=== PATIENT | female | born 1985 | race Two or more races ===

== ENCOUNTER 2020-05-19 11:58 | Inpatient (IN) | payer OTHER ==
[2020-05-19] MEDS ORDERED: Sodium Chloride 0.9% 10 ML Syringe FLUSH PRN (12:10)
[2020-05-19] MEDS ORDERED: Nalbuphine 10 MG/1 ML Vial IVPUSH PRN (12:10)
[2020-05-19] MEDS ORDERED: Oxytocin/Lactated Ringers 10 UNIT/1,000 ML BAG IV SCH ×2 (12:15)
[2020-05-19] MEDS ORDERED: Lactated Ringers 1,000 ML IV SCH (12:15)
[2020-05-19] MEDS ORDERED: Lidocaine 1% 50 ML MDV ONE (15:20)
--- NOTE | 2020-05-19 16:14 | PCM.LDHP ---
L&D History of Present Illness - General Date of Service: 05/19/20 Admit Problem/Dx: Patient Status Order with Admit Dx/Problem 05/19/20 12:10 Patient Status [ADT] Routine Admission Diagnosis/Problem Admission Diagnosis/Problem Source of Information: Patient, Family History Limitations: Reports: Language Barrier - History of Present Illness Introduction:: Patient is a 35 year old O+ GBS - Hungarian speaking female at 37-6 weeks gestational age with an GRISELDA of 06/03/20 by 8 week US who presented to the clinic for signs of labor. She reports that she noted contractions early this morning that have become more frequent. She reported some leaking of fluid that is blood tinged but denies vaginal bleeding. Cervical exam demonstrated 4cm/90%/- 2/posterior/soft, changed from previous examination. Amnisure was negative. She was sent to L&D for early signs of labor. Present Illness Comments:: Patient is a 35 year old O+ GBS - Hungarian speaking female at 37-6 weeks gestational age with an GRISELDA of 06/03/20 by 8 week US who presented to the clinic for signs of labor. She was then sent to L&D for early labor. Patient has received routine care with Dr. Trevino and denies any complications during her ; of Note patient had US on 01/23/20 that demonstrated EFW of 492 (94th percentile). Follow up US on 05/05/20 demonstrated EFW of 2986 g (71st percentile). She received the Tdap vaccine on 03/31/20; Flu vaccine 11/19/19 OBGYN History 04/09/09: of a female infant weighing 6 lbs 6 ounces at 40 weeks gestational age "[place]" 09/26/14: of a male weighing unknown at 40 weeks gestational age "[place]" G4: current labs: Blood type: O+ Antibody screen: Negative Rubella status: immune Hepatitis B surface antigen: negative Hepatitis C: unknown RPR: negative HIV: negative Gonorrhea: Negative Chlamydia: negative Anatomy US: 01/26/20 Normal RUBÉN, placental position, anatomy. EFW of 492 (94th percentile). 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: - Infectious Disease History Infectious Disease History: Reports: Novel Coronavirus Social & Family History - Family History Family Medical History: No Pertinent Family History - Tobacco Use Tobacco Use Status *Q: Never Tobacco User Second Hand Smoke Exposure: No - Caffeine Use Caffeine Use: Reports: None - Recreational Drug Use Recreational Drug Use: No H&P Review of Systems - Review of Systems: Review Of Systems: See Below General: Reports: No Symptoms Pulmonary: Reports: No Symptoms Cardiovascular: Reports: No Symptoms L&D Exam - Exam Exam: See Below - Vital Signs Vital Signs: Last Vital Signs Temp 99.2 F 05/19/20 12:10 Pulse 83 05/19/20 12:10 Resp 14 05/19/20 12:10 BP 150/89 H 05/19/20 12:10 Pulse Ox 97 05/19/20 12:10 Weight: 206 lb 11.2 oz - OB Specific Contraction Intensity: Mild to Moderate Movement: Active Heart Tones: Present - Zuniga Score Zuniga Score Cervix Position: Posterior Zuniga Score Consistency: Soft Zuniga Score Effacement: >80% Zuniga Score Dilation: 3-4 cm Zuniga Score 's Station: +1, +2 Zuniga Score Total: 10 - Exam General: Alert, Oriented Skin: Warm, Dry, Intact Psychiatric: Alert, Normal Affect, Normal Mood - Patient Data Lab Results Last 24 hrs: Laboratory Results - last 24 hr 05/19/20 05/19/20 Range/Units 12:28 12:33 WBC 8.71 (3.98-10.04) K/mm3 RBC 4.76 (3.98-5.22) M/mm3 Hgb 14.1 (11.2-15.7) gm/dl Hct 41.5 (34.1-44.9) % MCV 87.2 (79.4-94.8) fl MCH 29.6 (25.6-32.2) pg MCHC 34.0 (32.2-35.5) g/dl RDW Std Deviation 47.3 H (36.4-46.3) fL Plt Count 235 D (182-369) K/mm3 MPV 11.4 (9.4-12.3) fl Neut % (Auto) 74.0 H (34.0-71.1) % Lymph % (Auto) 19.2 L (19.3-51.7) % [place] % (Auto) 6.2 (4.7-12.5) % Eos % (Auto) 0 L (0.7-5.8) Baso % (Auto) 0.1 (0.1-1.2) % Neut # (Auto) 6.45 H (1.56-6.13) K/mm3 Lymph # (Auto) 1.67 (1.18-3.74) K/mm3 [place] # (Auto) 0.54 H (0.24-0.36) K/mm3 Eos # (Auto) 0.00 L (0.04-0.36) K/mm3 Baso # (Auto) 0.01 (0.01-0.08) K/mm3 SARS-CoV-2 RNA (RASHID) Negative (NEGATIVE) Result Diagrams: 05/19/20 12:33 - Problem List (1) 37 weeks gestation of SNOMED Code(s): 84641351 ICD Code: Z3A.37 - 37 WEEKS GESTATION OF Status: Acute Current Visit: Yes (2) Hungarian speaking patient SNOMED Code(s): 628102718 ICD Code: [id number] - Status: Acute Current Visit: Yes (3) Language barrier SNOMED Code(s): 630206300, 071618552 ICD Code: Z78.9 - OTHER SPECIFIED HEALTH STATUS Status: Acute Current Visit: Yes Problem List Initiated/Reviewed/Updated: Yes Orders Last 24hrs: Active Orders 24 hr Category Date Time Status Patient Status [ADT] Routine ADT 05/19/20 12:10 Active Activity as Tolerated [RC] PFP Care 05/19/20 12:10 Active Communication Order [RC] ASDIRECTED Care 05/19/20 12:10 Active Heart Tones [RC] ASDIRECTED Care 05/19/20 12:10 Active Non Stress Test [RC] PER UNIT ROUTINE Care 05/19/20 12:10 Active Notify Provider [RC] PFP Care 05/19/20 12:10 Active Notify Provider [RC] PRN Care 05/19/20 12:10 Active Peripheral IV Care [RC] . DIRECTED Care 05/19/20 12:10 Active Vital Signs [RC] PER UNIT ROUTINE Care 05/19/20 12:10 Active Regular Diet [DIET] Diet 05/19/20 Lunch Active BLOOD BANK HOLD SPECIMEN [BBK] Stat Lab 05/19/20 12:33 Received HEP C VIRUS AB [REF] Stat Lab 05/19/20 12:33 Received RAPID PLASMA REAGIN,RPR [CHEM] Routine Lab 05/19/20 12:33 Received Lactated Ringers [Ringers, Lactated] 1,000 ml Med 05/19/20 12:15 Active IV ASDIRECTED Nalbuphine [Nubain] Med 05/19/20 12:10 Active 10 mg IVPUSH Q2H PRN Oxytocin/Lactated Ringers [Pitocin in LR 10 Units/1,000 Med 05/19/20 12:15 Active ML] 10 unit in 1,000 ml IV .CONTINUOUS Oxytocin/Lactated Ringers [Pitocin in LR 10 Units/1,000 Med 05/19/20 12:15 Active ML] 10 unit in 1,000 ml IV TITRATE Sodium Chloride 0.9% [Saline Flush] Med 05/19/20 12:10 Active 10 ml FLUSH ASDIRECTED PRN Electronic Heart Tones Ext w TOCO [WOMSER] Oth 05/19/20 12:10 Ordered Routine Electronic Heart Tones Internal [WOMSER] Per Unit Oth 05/19/20 12:10 Ordered Routine Peripheral IV Insertion Adult [OM.PC] Routine Oth 05/19/20 12:10 Ordered Resuscitation Status Routine Resus Stat 05/19/20 12:10 Ordered Medication Orders Oxytocin/Lactated Ringer's (Pitocin In Lr 10 Units/1,000 Ml) 10 unit in 1,000 mls @ 12 mls/hr IV TITRATE REMY; Protocol Oxytocin/Lactated Ringer's (Pitocin In Lr 10 Units/1,000 Ml) 10 unit in 1,000 mls @ 500 mls/hr IV .CONTINUOUS REMY Lactated Ringer's (Ringers, Lactated) 1,000 mls @ 100 mls/hr IV ASDIRECTED REMY Nalbuphine HCl (Nalbuphine 10 Mg/1 Ml Vial) 10 mg IVPUSH Q2H PRN PRN Reason: Pain Sodium Chloride (Sodium Chloride 0.9% 10 Ml Syringe) 10 ml FLUSH ASDIRECTED PRN PRN Reason: Keep Vein Open Assessment/Plan Comment:: Patient is a 35 year old O+ GBS - Hungarian speaking female at 37-6 weeks gestational age with an GRISELDA of 06/03/20 by 8 week who presented to the clinic for signs of labor. She reports that she noted contractions early this morning that have become more frequent. She reported some leaking of fluid that is blood tinged but denies vaginal bleeding. Cervical exam demonstrated 4cm/90%/- 2/posterior/soft, changed from previous examination. Amnisure was negative. She was sent to L&D for early signs of labor. AROM was performed, demonstrating clear fluid. Mom and baby tolerated procedure well. 1. Early signs of labor - AROM with clear fluid done approximately 1245. Augmentation of labor with Pitocin as indicated 2. GBS - 3. O+ with negative antibody screen 4. Rubella immune 5. Continuous monitoring 6. Activity as tolerated 7. Small amounts of regular diet 8. Pain management as patient desires - she does not believe she wants an epidural at this time 9. Plans to breastfeed 10. Anticipate vaginal delivery unless otherwise indicated
--- NOTE | 2020-05-19 16:24 | PCM.DEL ---
L & D Note - General Info Date of Service: 05/19/20 Mother's Due Date: 06/03/20 - Delivery Note Labor: Spontaneous, Augmented by ARM Infant Delivery Method: Spontaneous Vaginal Delivery-Single Infant Delivery Mode: Spontaneous Presentation: Left Occiput Anterior (MARLENI) Nuchal Cord: None Anesthetic: Lidocaine (Xylocaine) 1% Plain Local Anesthetic Volume: Other (10 cc) Amniotic Fluid Description: Clear Laceration: 2nd Degree Suture type: Other (Monocryl) Suture size: 3-0 Placenta: Intact, Spontaneous Cord: 3 Vessels Estimated Blood Loss: 250 Resuscitation Needed: No : Bulb Syringe, Stimulated, Warmed Provider: Rebeca Stevens Score 1 min: 8 Score 5 min: 9 Second Stage Interventions: Reports: Encouragement Given Delivery Comments (Free Text/Narrative):: Stage I: Patient is a 35 year old O+ GBS - Faroese speaking female at 37-6 weeks gestational age with an GRISELDA of 06/03/20 by 8 week US who presented to the clinic for signs of labor. She reports that she noted contractions early this morning that have become more frequent. She reported some leaking of fluid that is blood tinged but denies vaginal bleeding. Cervical exam demonstrated 4cm/90%/-2/posterior/soft, changed from previous examination. She was sent to L&D for early signs of labor. Amnisure was negative. AROM was performed with clear fluid; mom and baby tolerated the procedure well. She quickly progressed to complete and pushing. Stage II: of a live male infant weighing 3370 g (7lbs 7 ounces) with Apgars of 8/9 at 1515 on 05/19/20 in the MARLENI position. The was placed on mother's abdomen and dried and stimulated. The vaginal mucosa was inspected and a midline 2nd degree laceration was noted. The area was numbed with 1% Lidocaine 10 ccs. The laceration was repaired with 3-0 Monocryl. Stage III: Spontaneous delivery of an intact placenta with three vessels occurred at 1521. The vaginal mucosa was once again inspected and demonstrated no other lacerations. Fundus was firm to palpation. EBL 250. Mother and baby stable to recovery. - General Info Date of Service: 05/19/20 - Patient Data Vitals - Most Recent: Last Vital Signs Temp 99.2 F 05/19/20 12:10 Pulse 83 05/19/20 12:10 Resp 14 05/19/20 12:10 BP 150/89 H 05/19/20 12:10 Pulse Ox 97 05/19/20 12:10 Weight - Most Recent: 206 lb 11.2 oz Lab Results Last 24 Hours: Laboratory Results - last 24 hr 05/19/20 05/19/20 Range/Units 12:28 12:33 WBC 8.71 (3.98-10.04) K/mm3 RBC 4.76 (3.98-5.22) M/mm3 Hgb 14.1 (11.2-15.7) gm/dl Hct 41.5 (34.1-44.9) % MCV 87.2 (79.4-94.8) fl MCH 29.6 (25.6-32.2) pg MCHC 34.0 (32.2-35.5) g/dl RDW Std Deviation 47.3 H (36.4-46.3) fL Plt Count 235 D (182-369) K/mm3 MPV 11.4 (9.4-12.3) fl Neut % (Auto) 74.0 H (34.0-71.1) % Lymph % (Auto) 19.2 L (19.3-51.7) % [place] % (Auto) 6.2 (4.7-12.5) % Eos % (Auto) 0 L (0.7-5.8) Baso % (Auto) 0.1 (0.1-1.2) % Neut # (Auto) 6.45 H (1.56-6.13) K/mm3 Lymph # (Auto) 1.67 (1.18-3.74) K/mm3 [place] # (Auto) 0.54 H (0.24-0.36) K/mm3 Eos # (Auto) 0.00 L (0.04-0.36) K/mm3 Baso # (Auto) 0.01 (0.01-0.08) K/mm3 SARS-CoV-2 RNA (RASHID) Negative (NEGATIVE) Med Orders - Current: Current Medications Oxytocin/Lactated Ringer's (Pitocin In Lr 10 Units/1,000 Ml) 10 unit in 1,000 mls @ 12 mls/hr IV TITRATE REMY; Protocol Oxytocin/Lactated Ringer's (Pitocin In Lr 10 Units/1,000 Ml) 10 unit in 1,000 mls @ 500 mls/hr IV .CONTINUOUS REMY Lactated Ringer's (Ringers, Lactated) 1,000 mls @ 100 mls/hr IV ASDIRECTED REMY Nalbuphine HCl (Nalbuphine 10 Mg/1 Ml Vial) 10 mg IVPUSH Q2H PRN PRN Reason: Pain Sodium Chloride (Sodium Chloride 0.9% 10 Ml Syringe) 10 ml FLUSH ASDIRECTED PRN PRN Reason: Keep Vein Open Discontinued Medications Lidocaine HCl (Lidocaine 1% 50 Ml Mdv) Confirm Administered Dose 50 ml .ROUTE .[employer] ONE Stop: 05/19/20 15:21 - Problem List & Annotations (1) 37 weeks gestation of SNOMED Code(s): 54030041 Code(s): Z3A.37 - 37 WEEKS GESTATION OF Status: Acute Current Visit: Yes (2) Second degree perineal laceration SNOMED Code(s): 3821727 Code(s): O70.1 - SECOND DEGREE PERINEAL LACERATION DURING DELIVERY Status: Acute Current Visit: Yes (3) (normal spontaneous vaginal delivery) SNOMED Code(s): 94394768, 918536204 Code(s): O80 - ENCOUNTER FOR FULL-TERM UNCOMPLICATED DELIVERY Status: Acute Current Visit: Yes (4) Faroese speaking patient SNOMED Code(s): 112088760 Code(s): UJC0947 - Status: Acute Current Visit: Yes - Problem List Review Problem List Initiated/Reviewed/Updated: Yes - Assessment Assessment:: of a live male weighing 3370 g (7lbs 7 ounces) with APGARs of 8/9 at 1515 on 05/19/20 to a G3 now P3003 x 3 GBS - O+ 35 year old female. - Plan Plan:: 1. PPD#0 of a live male infant 2. GBS - 3. O+ with negative antibody screen 4. Rubella immune 5. care per unit routine 6. Activity as tolerated 7. Regular diet 9. Plans to breastfeed 10. Anticipate discharge in 24-48 hours pending marketing communications associate's recommendation
[2020-05-19] MEDS ORDERED: Acetaminophen 325 MG Tab PO PRN (16:59)
[2020-05-19] MEDS ORDERED: Witch Hazel Medicated Pads 40/Jar TOP PRN (16:59)
[2020-05-19] MEDS ORDERED: Benzocaine/Menthol 20%-0.5% Spray 56 GM Canister TOP PRN (16:59)
[2020-05-19] MEDS ORDERED: Docusate Sodium 100 MG Cap PO PRN (16:59)
[2020-05-19] MEDS: Ibuprofen 600 MG Tab PO PRN (17:22)
[2020-05-20] MEDS: Ibuprofen 600 MG Tab PO PRN ×2 (00:09→08:26)
[2020-05-20] MEDS ORDERED: Prenatal Multivitamin with Calcium/Folic Acid/Iron Tab PO SCH (09:00)
--- NOTE | 2020-05-20 10:33 | PCM.DCSUM1 ---
Discharge Summary - Hospital Course Free Text/Narrative:: Patient is a 35 year old O+ GBS - Jordanian speaking female at 37-6 weeks gestational age with an GRISELDA of 06/03/20 by 8 week US who presented to the clinic for signs of labor. She reports that she noted contractions early this morning that have become more frequent. She reported some leaking of fluid that is blood tinged but denies vaginal bleeding. Cervical exam demonstrated 4cm/90%/- 2/posterior/soft, changed from previous examination. She was sent to L&D for early signs of labor. Amnisure was negative. AROM was performed with clear fluid; mom and baby tolerated the procedure well. She quickly progressed to complete and pushing. of a live male weighing 3370 g (7lbs 7 ounces) with Apgars of 8/9 at 1515 on 05/19/20 in the MARLENI position. Midline 2nd degree laceration was noted. The area was numbed with 1% Lidocaine 10 ccs and the laceration was repaired with 3-0 Monocryl. Placenta delivered intact with three vessel cord. EL 250. Mom and baby stable to recovery. HPI Initial Comments: Today patient is doing well. Has been able to ambulate and use the bathroom. She reports that her lochia is as expected. She is , which is going well. She and her are wanting to go home today. - Discharge Data Discharge Date: 05/20/20 Discharge Disposition: Home, Self-Care 01 Condition: Good - Referral to Home Health Primary Care Physician: Maximiliano Trevino MD - Discharge Diagnosis/Problem(s) (1) 37 weeks gestation of SNOMED Code(s): 38929681 ICD Code: Z3A.37 - 37 WEEKS GESTATION OF Status: Acute Current Visit: Yes (2) Jordanian speaking patient SNOMED Code(s): 000328226 ICD Code: IJH6986 - Status: Acute Current Visit: Yes (3) Language barrier SNOMED Code(s): 861648540, 478164076 ICD Code: Z78.9 - OTHER SPECIFIED HEALTH STATUS Status: Acute Current Visit: Yes - Patient Instructions Diet: Regular Diet as Tolerated Activity: As Tolerated Activity, Other: Pelvic rest Driving: May Drive Today Showering/Bathing: May Shower Notify Provider of: Fever, Increased Pain, Nausea and/or Vomiting Other/Special Instructions: Nothing in the vagina for 6 weeks - Discharge Plan Home Medications: Home Meds Pnv No.95/Ferrous Fum/Folic AC [ Tablet] 1 each PO DAILY 05/19/20 [History] Acetaminophen [Tylenol] 650 mg PO Q4H PRN tablet 05/20/20 [Rx] Docusate Sodium [Colace] 100 mg PO BID PRN cap 05/20/20 [Rx] Ibuprofen [Motrin] 600 mg PO Q4H PRN tablet 05/20/20 [Rx] connor Hall [Tucks] 1 pad TOP ASDIRECTED PRN pad 05/20/20 [Rx] - Discharge Summary/Plan Comment DC Time >30 min.: No - Patient Data Vitals - Most Recent: Last Vital Signs Temp 97.7 F 05/20/20 04:11 Pulse 78 05/20/20 04:11 Resp 12 05/20/20 04:11 BP 137/85 05/20/20 04:11 Pulse Ox 98 05/20/20 04:11 Weight - Most Recent: 206 lb 11.2 oz I&O - Last 24 hours: Intake & Output 05/19/20 05/20/20 05/20/20 22:59 06:59 14:59 Output Total 442 Balance -442 Lab Results - Last 24 hrs: Laboratory Results - last 24 hr 05/19/20 05/19/20 05/19/20 Range/Units 12:28 12:33 12:33 WBC 8.71 (3.98-10.04) K/mm3 RBC 4.76 (3.98-5.22) M/mm3 Hgb 14.1 (11.2-15.7) gm/dl Hct 41.5 (34.1-44.9) % MCV 87.2 (79.4-94.8) fl MCH 29.6 (25.6-32.2) pg MCHC 34.0 (32.2-35.5) g/dl RDW Std Deviation 47.3 H (36.4-46.3) fL Plt Count 235 D (182-369) K/mm3 MPV 11.4 (9.4-12.3) fl Neut % (Auto) 74.0 H (34.0-71.1) % Lymph % (Auto) 19.2 L (19.3-51.7) % [place] % (Auto) 6.2 (4.7-12.5) % Eos % (Auto) 0 L (0.7-5.8) Baso % (Auto) 0.1 (0.1-1.2) % Neut # (Auto) 6.45 H (1.56-6.13) K/mm3 Lymph # (Auto) 1.67 (1.18-3.74) K/mm3 [place] # (Auto) 0.54 H (0.24-0.36) K/mm3 Eos # (Auto) 0.00 L (0.04-0.36) K/mm3 Baso # (Auto) 0.01 (0.01-0.08) K/mm3 RPR Non-reactive (NONREACTIVE) SARS-CoV-2 RNA (RASHID) Negative (NEGATIVE) Med Orders - Current: Current Medications Acetaminophen (Acetaminophen 325 Mg Tab) 650 mg PO Q4H PRN PRN Reason: mild pain or fever Benzocaine/Menthol (Benzocaine/Menthol 20%-0.5% [place] 56 Gm Canister) 0 gm TOP ASDIRECTED PRN PRN Reason: Perineal Comfort Measure Last Admin: 05/19/20 17:21 Dose: 1 can Documented by: Docusate Sodium (Docusate Sodium 100 Mg Cap) 100 mg PO BID PRN PRN Reason: Constipation Last Admin: 05/20/20 00:09 Dose: 100 mg Documented by: Ibuprofen (Ibuprofen 600 Mg Tab) 600 mg PO Q4H PRN PRN Reason: Mild pain or fever Last Admin: 05/20/20 08:26 Dose: 600 mg Documented by: Prenat Multivit/[place]/Iron/Folic Ac ( Multivitamin With Calcium/Folic Acid/Iron Tab) 1 each PO DAILY REMY Last Admin: 05/20/20 08:25 Dose: 1 each Documented by: Connor Hall (Connor Hall Medicated Pads 40/Jar) 1 pad TOP ASDIRECTED PRN PRN Reason: Perineal Comfort Measure Last Admin: 05/19/20 17:21 Dose: 1 tub Documented by: Discontinued Medications Oxytocin/Lactated Ringer's (Pitocin In Lr 10 Units/1,000 Ml) 10 unit in 1,000 mls @ 12 mls/hr IV TITRATE REMY; Protocol Oxytocin/Lactated Ringer's (Pitocin In Lr 10 Units/1,000 Ml) 10 unit in 1,000 mls @ 500 mls/hr IV .CONTINUOUS REMY Last Admin: 05/19/20 17:22 Dose: 500 mls/hr Documented by: Lactated Ringer's (Ringers, Lactated) 1,000 mls @ 100 mls/hr IV ASDIRECTED REMY Lidocaine HCl (Lidocaine 1% 50 Ml Mdv) Confirm Administered Dose 50 ml .ROUTE .[facility] ONE Stop: 05/19/20 15:21 Last Admin: 05/19/20 17:22 Dose: 50 ml Documented by: Nalbuphine HCl (Nalbuphine 10 Mg/1 Ml Vial) 10 mg IVPUSH Q2H PRN PRN Reason: Pain Sodium Chloride (Sodium Chloride 0.9% 10 Ml Syringe) 10 ml FLUSH ASDIRECTED PRN PRN Reason: Keep Vein Open
== END 2020-05-20 18:10 | disposition home or self-care (01) | DRG 807 ==
LOC: JD.OB 11:58 → OBSVTOIN 15:15 → JD.OB 15:15
PROVIDERS: ADMIT Obstetrics & Gynecology; ATTEND Obstetrics & Gynecology
PROC: 10E0XZZ Delivery of Products of Conception, External Approach (ICD-10-PCS; principal; 2020-05-19)
PROC: 0KQM0ZZ Repair Perineum Muscle, Open Approach (ICD-10-PCS; 2020-05-19)
PROC: 10907ZC Drainage of Amniotic Fluid, Therapeutic from Products of Conception, Via Natural or Artificial Opening (ICD-10-PCS; 2020-05-19)
DX: O70.1 Second degree perineal laceration during delivery (principal); Z37.0 Single live birth; Z3A.37 37 weeks gestation of pregnancy; Z20.822 Contact with and (suspected) exposure to COVID-19
CPT/HCPCS: 36415; 59025; 59409; 85025; 86592; 86803; A9270-GY; J2001; J2590; U0002

== ENCOUNTER 2022-03-02 01:13 | Inpatient (IN) | payer SELFPAY ==
[2022-03-02] MEDS ORDERED: Calcium Carbonate 500 MG Tab.Chew PO PRN (01:56)
[2022-03-02] MEDS ORDERED: Nalbuphine 10 MG/0.5 ML Syringe IVPUSH PRN (01:56)
[2022-03-02] MEDS ORDERED: Ondansetron 4 MG/2 ML SDV IVPUSH PRN (01:56)
[2022-03-02] MEDS ORDERED: Oxytocin/Lactated Ringers 10 UNIT/1,000 ML BAG IV SCH ×3 (02:00→09:54)
[2022-03-02] MEDS ORDERED: Lactated Ringers 1,000 ML IV SCH (02:00)
[2022-03-02] MEDS ORDERED: Hydrocortisone Acetate 25 MG Supp RECTAL PRN (09:54)
[2022-03-02] MEDS ORDERED: Docusate Sodium 100 MG Cap PO PRN (09:54)
[2022-03-02] MEDS ORDERED: Benzocaine/Menthol 20%-0.5% Spray 78 GM Cannister TOP PRN (09:54)
[2022-03-02] MEDS ORDERED: Acetaminophen 325 MG Tab PO PRN (09:54)
[2022-03-02] MEDS ORDERED: Witch Hazel Medicated Pads 40/Jar TOP PRN (09:54)
[2022-03-02] MEDS ORDERED: Ibuprofen 600 MG Tab PO PRN (09:54)
[2022-03-02] MEDS ORDERED: Magnesium Hydroxide 400 MG/5 ML Susp 30 ML Cup PO PRN (09:54)
[2022-03-02] MEDS: Prenatal Multivitamin with Calcium/Folic Acid/Iron Tab PO SCH (18:37)
[2022-03-03] MEDS: Prenatal Multivitamin with Calcium/Folic Acid/Iron Tab PO SCH (08:16)
== END 2022-03-03 09:50 | disposition home or self-care (01) | DRG 807 ==
LOC: JD.OBCHECK 01:13 → JD.OB 01:14 → JD.OBCHECK 03:09 → JD.OB 03:10 → OBSVTOIN 07:10 → JD.OB 07:11
PROVIDERS: ADMIT Obstetrics & Gynecology; ATTEND Obstetrics & Gynecology
PROC: 10E0XZZ Delivery of Products of Conception, External Approach (ICD-10-PCS; principal; 2022-03-02)
DX: O13.4 Gestational [pregnancy-induced] hypertension without significant proteinuria, complicating childbirth (principal); Z37.0 Single live birth; Z3A.38 38 weeks gestation of pregnancy; O70.0 First degree perineal laceration during delivery; O69.81X0 Labor and delivery complicated by cord around neck, without compression, not applicable or unspecified
CPT/HCPCS: 36415; 59025; 59409; 84112; 85025; 86592; 86762; 86803; 86850; 86900; 86901; 87340; A9270-GY; G0433; J2590